=== PATIENT | male | born 1950 | race Caucasian/White ===

== ENCOUNTER → 2023-09-09 | Outpatient (REF) | payer MEDICARE ==
[~2023-09-09] MED LIST: AMLODIPINE BESYL5 MG PO; AUGMENTIN 500-1 EACH PO; AZITHROMYCIN250 MG PO; DIAZEPAM5 MG PO; LATANOPROST2.5 ML OP; LEVOTHYROXINE112 MCG PO; METOPROLOL TART25 MG PO; OMEPRAZOLE40 MG PO; PROVENTIL HFA6.7 GM INH; TIMOPTIC 0.5%1 EACH OU; TRAZODONE HCL100 MG PO; guaifenesin PEG
== END ==
LOC: MRI 08:45
PROVIDERS: ATTEND Nurse Practitioner Family
DX: S06.300A Unspecified focal traumatic brain injury without loss of consciousness, initial encounter (principal)
CPT/HCPCS: 70551; 72141